=== PATIENT | male | born 1950 | race Caucasian/White ===

== ENCOUNTER 2020-06-28 14:42 | Emergency (ER) | payer MEDICARE, BC ==
[2020-06-28 16:00] VITALS: BP 124/77; PULSE 87
--- NOTE | 2020-06-28 16:42 | EDM.PDOC ---
ED HPI GENERAL MEDICAL PROBLEM - General Chief Complaint: Lower Extremity Injury/Pain Stated Complaint: L) lnee pain Time Seen by Provider: 06/28/20 14:46 Source of Information: Reports: Patient History Limitations: Reports: No Limitations - History of Present Illness INITIAL COMMENTS - FREE TEXT/NARRATIVE: Pt with pain in his left knee Has had pain previously but worse after playing golf yesterday No obvious swelling or erythema Onset: Gradual Duration: Day(s): Location: Reports: Lower Extremity, Left Quality: Reports: Ache Severity: Mild Improves with: Reports: Immobilization Worsens with: Reports: Movement - Related Data Allergies Allergy/AdvReac Type Severity Reaction Status Date / Time No Known Allergies Allergy Verified 10/07/16 22:36 Home Meds: Home Meds Lisinopril/Hydrochlorothiazide [Lisinopril-Hctz 20-25 mg Tab] 1 each PO DAILY 03/09/14 [History] Verapamil [Verelan] 240 mg PO QPM #30 cap.er 03/10/14 [Rx] atorvaSTATin [Lipitor] 1 tab PO QPM 10/04/16 [History] Acetaminophen [Tylenol] 650 mg PO Q4H PRN #100 tablet 10/09/16 [Rx] Amoxicillin/Clavulanate K [Augmentin 875 MG/125 MG] 1 tab PO Q12HR #20 tablet 10/09/16 [Rx] Calcium Carbonate [Tums Extra Strength] 1,500 mg PO BEDTIME #100 tab.chew 10/09/16 [Rx] metroNIDAZOLE [Flagyl] 500 mg PO Q8H #30 tablet 10/09/16 [Rx] Past Medical History Cardiovascular History: Reports: High Cholesterol, Hypertension Gastrointestinal History: Reports: Other (See Below) Other Gastrointestinal History: Hx polyps Genitourinary History: Reports: Other (See Below) Other Genitourinary History: Kidney stone removal approx 2003 with stent placement Musculoskeletal History: Reports: Arthritis, Other (See Below) Other Musculoskeletal History: R) Knee scope done approx 2005 Oncologic (Cancer) History: Reports: Ovarian - Infectious Disease History Infectious Disease History: Reports: None - Past Surgical History Head Surgeries/Procedures: Reports: None Cardiovascular Surgical History: Reports: None Musculoskeletal Surgical History: Reports: Arthroscopic Knee Oncologic Surgical History: Reports: None Dermatological Surgical History: Reports: None Social & Family History - Family History Oncologic: Reports: Ovarian - Tobacco Use Smoking Status *Q: Never Smoker Second Hand Smoke Exposure: No - Caffeine Use Caffeine Use: Reports: Coffee - Alcohol Use Days Per Week of Alcohol Use: 1 Number of Drinks Per Day: 2 Total Drinks Per Week: 2 Date of Last Drink: 06/27/20 Time of Last Drink: 20:00 - Recreational Drug Use Recreational Drug Use: No - Living Situation & Occupation Living situation: Reports: , with Family Occupation: Employed Review of Systems - Review of Systems Review Of Systems: See Below Musculoskeletal: Reports: Joint Pain ED EXAM, GENERAL - Physical Exam Exam: See Below Extremities: Other (Left knee mildly tender No erythema No ecchymosis No swelling No effusion) Course - Vital Signs Last Recorded V/S: Last Vital Signs Temp 97.7 F 06/28/20 15:46 Pulse 87 06/28/20 15:46 Resp 20 06/28/20 15:46 BP 124/77 06/28/20 15:46 Pulse Ox 97 06/28/20 15:46 - Orders/Labs/Meds Orders: Active Orders 24 hr Category Date Time Status Knee 3V Lt [CR] Stat Exams 06/28/20 14:54 Taken - Re-Assessments/Exams Free Text/Narrative Re-Assessment/Exam: 06/28/20 16:41 Xray: No obvious pathology Await report Departure - Departure Time of Disposition: 16:45 Disposition: Home, Self-Care 01 Clinical Impression: Knee pain Qualifiers: Chronicity: unspecified Laterality: left Qualified Code(s): M25.562 - Pain in left knee - Discharge Information *PRESCRIPTION DRUG MONITORING PROGRAM REVIEWED*: Not Applicable *COPY OF PRESCRIPTION DRUG MONITORING REPORT IN PATIENT LISANDRA: Not Applicable Instructions: Acute Knee Pain, Adult Additional Instructions: Ice as needed follow up in clinic Sepsis Event Note (ED) - Evaluation Sepsis Screening Result: No Definite Risk - Focused Exam Vital Signs: Vital Signs Temp Pulse Resp BP Pulse Ox 06/28/20 15:46 97.7 F 87 20 124/77 97 - My Orders Last 24 Hours: My Active Orders 06/28/20 14:54 Knee 3V Lt [CR] Stat - Assessment/Plan Last 24 Hours: My Active Orders 06/28/20 14:54 Knee 3V Lt [CR] Stat
== END 2020-06-28 16:56 | disposition home or self-care (01) ==
LOC: LL.ED 14:42
DX: M25.562 Pain in left knee (principal); I10 Essential (primary) hypertension; M19.90 Unspecified osteoarthritis, unspecified site; Z79.899 Other long term (current) drug therapy
CPT/HCPCS: 73562-LT; 99282; 99283